=== PATIENT | female | born 2000 | race Caucasian/White ===

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

== ENCOUNTER 2021-11-04 11:36 | Emergency (ER) | payer OTHER ==
[~2021-11-04] VITALS: Ht 162.6 cm; Wt 87.2 kg
[~2021-11-04 11:36] MED LIST changes: +NAPROSYN500 MG PO
[2021-11-04 11:48] VITALS: BP 119/64
[2021-11-04] MEDS ORDERED: VYVANSE40 MG PO (11:58)
[2021-11-04 12:01] VITALS: BP 108/58
[2021-11-04 12:30] VITALS: BP 110/58
[2021-11-04] MEDS ORDERED: NAPROXEN500 MG PO (12:54)
[2021-11-04 13:00] VITALS: BP 104/58
[2021-11-04 13:05] VITALS: BP 104/58
== END 2021-11-04 13:15 | disposition home or self-care (01) | DRG 179 ==
LOC: ED 11:36
DX: U07.1 COVID-19 (principal); R50.9 Fever, unspecified; J02.9 Acute pharyngitis, unspecified; R05.9 Cough, unspecified; R51.9 Headache, unspecified

== ENCOUNTER 2022-01-28 19:14 | Emergency (ER) | payer OTHER ==
[~2022-01-28] VITALS: Ht 162.6 cm; Wt 86.0 kg
[~2022-01-28 19:14] MED LIST changes: +NAPROXEN500 MG PO; +VYVANSE40 MG PO
[2022-01-28] MEDS ORDERED: PREDNISONE10 MG PO (20:03)
[2022-01-28 20:32] VITALS: BP 113/69
== END 2022-01-28 20:30 | disposition home or self-care (01) | DRG 556 ==
LOC: ED 19:14
DX: M25.522 Pain in left elbow (principal); R20.2 Paresthesia of skin